=== PATIENT | male | born 1935 | race Caucasian/White ===

== ENCOUNTER 2017-05-22 02:20 | Inpatient (IN) | payer OTHER, MEDICARE ==
[~2017-05-22] VITALS: Ht 170.2 cm; Wt 81.6 kg
[~2017-05-22 02:20] MED LIST: ASPIRIN EC81 M1 PO; LIPITOR20 M2 PO; OMEGA 3-6-9 11200 MG; VITAMIN B-650 M2 PO; VITAMIN B122500 MC1; VITAMIN D31000 UNI1 PO
--- NOTE | 2017-05-22 07:26 | Operative Report ---
Operative/Inv Procedure Report Surgery Date: 05/22/17 Name of Procedure: Left total knee arthroplasty Pre-Operative Diagnosis: Left knee degenerative joint disease Post-Operative Diagnosis: Left knee degenerative joint disease Estimated Blood Loss: 50ml to 100ml Surgeon/Material Control Analyst: Bharati QUIROS,Robb Mendoza APRN Anesthesia: block, spinal Implants: [employer] size 5 left cruciate retaining legion nonporous femoral component. Nadia II left nonporous tibial baseplate size 5. Nadia II biconvex patellar component size 23 mm. Size 56 9 mm Legion cruciate retaining XLPE high flexion articular insert. Drains: Hemovac Complications: None Condition: Stable to PACU Operative Indication: This is an 82-year-old male with long-standing left knee pain that has failed conservative care. Risks and benefits of the procedure were discussed with the patient at length. Risks include but are not limited to nerve damage, muscle damage, infection, blood loss, blood clots, pulmonary embolus, and even . The patient agreed to the above risks and elected to proceed with surgery. Operative/Procedure Note Note: The patient was taken to the operating room. Anesthesia was induced after the timeout was performed. The lower extremity was prepped and draped in the normal sterile fashion. IV antibiotics were given prior to incision. The site marking was visualized prior to incision. After the leg was prepped and draped, an esmarch was used to exsanguinate the extremity. The tourniquet was inflated. A midline incision was made proximal to the patella extending down to the tibial tubercle. A medial parapatellar approach was then made. The skin was retracted and the extensor mechanism was incised. The knee was taken down into full extension. The patellar fat pad was resected. The medial retinaculum was then taken down. The synovium over the distal femur was then resected. The patella was everted and the knee was flexed up. The lateral meniscus was then excised. The ACL was removed. A drill was then used to open up the distal femur. The intramedullary guide was then applied. A 6 distal femoral cut was then made. The femur was then sized. The chamfer guide was then applied. The anterior, posterior, and chamfer cuts were then made while protecting the patellar tendon with a Hohmann retractor and the medial collateral ligament with a Z retractor. A pickle fork was then used to deliver the tibia. The extramedullary tibial guide was then applied. The proximal tibial cut was made. The medial and lateral meniscus were then excised. The osteophytes were removed with a Rongeur. The tibia was sized and the trial base plate was then pinned in place. A trial femoral component was placed and a trial polyethylene insert was then applied as well. The knee was taken through a range of motion and was noted to be quite stable. The patella was then everted, sized, and then reamed. A trial patellar component was placed and the knee was taken through range of motion. The patella was noted to be quite stable. All trial instruments were then removed. The knee was copiously irrigated. Retractors were placed in the final components were then cemented in. A trial polyethylene insert was then placed. After the cement hardened, the excess cement was removed. The trial poly-insert was then removed. The knee was copiously irrigated. The final poly insert was inserted. The tourniquet was let down. Any bleeding vessels were identified and cauterized. A 1/8 inch Hemovac drain was then placed. The extensor mechanism was closed with #1 Vicryl suture in a simple interrupted fashion. The skin was closed with 2-0 Vicryl suture. A running subcuticular 4-0 Monocryl stitch was then placed. Dermabond was applied. A dry sterile dressing was placed and patient was transferred to PACU in stable condition.
--- NOTE | 2017-05-22 10:08 | Admission Core Measures ---
Acute Coronary Syndrome (CM) ACS Core Measures Acute Coronary Syndrome Diagnosis No Congestive Heart Failure (NEW) CHF Core Measures Congestive Heart Failure Diagnosis No Cerebrovascular Accident (NEW) CVA Core Measures CVA/TIA Diagnosis No Venous Thromboembolism VTE Core [place] (View Protocol) VTE Risk Factors Surgery No Mechanical VTE Prophylaxis d/t N/A MechProphylax Ordered No VTE Pharm Prophylaxis d/t NA PharmProphylax ordered Problem List As ranked by this Provider includes Assessment & Plan 1. Unilateral primary osteoarthritis, left knee HOME MEDS Home Med List Aspirin (Ecotrin*) 81 MG TABLET.DR 1 TAB PO DAILY CARDIAC (Reported) Atorvastatin Calcium (Lipitor) 20 MG TABLET 1 TAB PO DAILY CHOLESTEROL ( Reported) Cholecalciferol (Vitamin D3) (Vitamin D3) 1,000 UNIT CAPSULE 1 CAP PO TID SUPPLEMENT (Reported) Pyridoxine HCl (Vitamin B-6) 50 MG TABLET 1 TAB PO DAILY SUPPLEMENT (Reported )
--- NOTE | 2017-05-22 10:15 | Patient Discharge Instructions ---
Discharge Instructions General Discharge Information You were seen/treated for: Left knee pain related to unilateral primary osteoarthritis You had these procedures: Left total knee replacement Watch for these problems: Increasing pain despite the use of pain medication Increasing redness, warmth, swelling Drainage of any type from incision Inability to bear weight on operative leg Fever greater than 101.5 Do not soak the wound: Yes No bath, but you may shower: Yes Other wound care: Keep wound clean and dry No ointmets or lotions of any type on or near incision, no exceptions Do not soak wound for a minimum of 6 weeks unless otherwise indicated by Dr. Calabrese Special Instructions: Pain medication can be constipating. Be sure to take a laxative such as miralax or a stool softener such as colace, or both. These are available over the counter. Diet Continue normal diet: Yes Recommended Diet: Regular Activity Full Activity/No Limits: No Activity Self Limited: Yes Pounds, do NOT lift more than: 10 Activity Limited to: Weight bear as tolerated Acute Coronary Syndrome Inclusion Criteria At DC or during hospital stay patient has or had the following: ACS DIAGNOSIS No Discharge Core Measures Meds if any: Prescribed or Continued at Discharge Meds if any: NOT Prescribed or Continued at Discharge Congestive Heart Failure Inclusion Criteria At DC or during hospital stay patient has or had the following: CHF DIAGNOSIS No Discharge Core Measures Meds if any: Prescribed or Continued at Discharge Meds if any: NOT Prescribed or Continued at Discharge Cerebrovascular accident Inclusion Criteria At DC or during hospital stay patient has or had the following: CVA/TIA Diagnosis No Discharge Core Measures Meds if any: Prescribed or Continued at Discharge Meds if any: NOT Prescribed or Continued at Discharge Venous thromboembolism Inclusion Criteria VTE Diagnosis No VTE Type NONE VTE Confirmed by (Test) NONE Discharge Core Measures - Per Current guidelines, there needs to be overlap - treatment for the first 5 days of Warfarin therapy. - If discharged on Warfarin prior to 5 days of - overlap therapy, the patient will need to be - assessed for post discharge needs including - *Post discharge parental anticoagulation - *Warfarin and/or parental anticoagulation education - *Follow up date to check INR post discharge At least 5 days overlap therapy as Inpatient No Meds if any: Prescribed or Continued at Discharge Note: Overlap Therapy is Warfarin and Anticoagulant Meds if any: NOT Prescribed or Continued at Discharge
--- NOTE | 2017-05-22 10:19 | Surgical Discharge Summary ---
Visit Information Visit Dates Admission Date: 05/22/17 Discharge Date: 05/24/17 History of Present Illness Chief Complaint: Left knee pain related to unilateral primary osteoarthritis Surgical History Pertinent Surgical History: knee replacement Review of Systems: See H&P Hospital Course Course Attending Physician: Robb Calabrese MD Primary Care Physician: Tomi Rangel MD Hospital Course: Patient was admitted to the hospital on 05/22/2017 for an elective left total knee replacement. He tolerated the procedure well and was transferred to a general surgical floor. His diet was advanced and tolerated. He voided spontaneously. He was evaluated and treated by physical therapy. At the time of hospital discharge, his vital signs were stable and within normal limits, his neurovascular status was intact, and his pain was controlled with po pain medications. He was deemed appropriate for discharge. Allergies: Coded Allergies: No Known Allergies (05/20/17) Disposition Summary Disposition Principal Diagnosis: Left knee unilateral primary osteoarthritis Additional Diagnosis: None Discharge Disposition: home health services Discharge Instructions General Discharge Information Code Status: Full Code Patient's Diet: Regular, advance as tolerated Patient's Activity: WBAT Follow-Up Instructions/Appts: Follow up with Dr. Calabrese in 2 weeks from date of surgery Medications at Discharge Discharge Medications: Continue taking these medications: Aspirin (Ecotrin*) 81 MG TABLET. 1 Tablet ORAL DAILY Cyanocobalamin (Vitamin B-12) (Vitamin B12) 2,500 MCG TABLET Pyridoxine HCl (Vitamin B-6) 50 MG TABLET 1 Tablet ORAL DAILY Cholecalciferol (Vitamin D3) (Vitamin D3) 1,000 UNIT CAPSULE 1 Capsule ORAL THREE TIMES DAILY Fish Oil/Borage/Flax/Om3,6,9#1 ([place] 3-6-9 1,200 MG Softgel) 1,200 MG CAPSULE Atorvastatin Calcium (Lipitor) 20 MG TABLET 1 Tablet ORAL DAILY Start taking the following new medications: Enoxaparin Sodium (Lovenox) 40 MG/0.4 ML SYRINGE 40 Milligram Inject into fatty tissue DAILY Qty = 30 No Refills Oxycodone HCl (Oxycodone HCl) 5 MG TABLET 1-2 Tablet ORAL EVERY 4-6 HOURS NEEDED as needed for POSTOP PAIN Qty = 36 No Refills Docusate Sodium (Colace) 100 MG CAPSULE 1 Capsule ORAL TWICE DAILY Qty = 14 No Refills Instructions: STOP TAKING IF YOU DEVELOP LOOSE STOOL/DIARRHEA
--- NOTE | 2017-05-22 13:22 | PN- Orthopedic ---
Subjective Subjective: Post op check Awake, alert No complaints at this time Pain is well controlled Denies nausea, tolerating regular food Has not ambulated with PT yet Objective Vital Signs and I&Os 110/60 HR 64 RR18 sat 95% on 3LNC T 97.9 Urine output 395cc clear, yellow urine in 3 hours LANNY 55cc bloody drainage total since OR Physical Exam: General: alert and oriented times three Chest: clear anteriorly bilaterally, RRR Abd: soft, good bs Ext: warm, no edema, normosensate, good 5/5 JUAN JOSÉ BLE, no calf tenderness On Q in place LANNY in place -drainage as above Wd: dressed, dry, ice pack in place Assessment/Plan Assessment/Plan 82yo male s/p L TKR pain management On Q per anesthesia Monitor LANNY output dc gloria in am PT - WBAT TRC lovenox for dvt ppx Core Measures Venous Thromboembolism VTE Risk Factors Surgery No Mechanical VTE Prophylaxis d/t N/A MechProphylax Ordered No VTE Pharm Prophylaxis d/t NA PharmProphylax ordered
[2017-05-22 16:00] VITALS: BP 124/70
[2017-05-22 18:00] VITALS: BP 110/64
[2017-05-22 21:22] VITALS: BP 1216/70
[2017-05-22 22:00] VITALS: BP 108/68
[2017-05-23 07:11] VITALS: BP 109/72
--- NOTE | 2017-05-23 08:09 | PN- Orthopedic ---
See Addendum Subjective Subjective: POD #1 s/p left TKR. Resting comfortably in bed. No complaints of pain. No N/V , F/C, CP/SOB. Yet to ambulate. Voiding via gloria catheter. Objective Vital Signs and I&Os Vital Signs Date Time Temp Pulse Resp B/P B/P Pulse O2 O2 Flow FiO2 Mean Ox Delivery Rate 05/23 0711 97.9 64 18 109/72 92 Room Air 05/22 2200 97.5 64 18 108/68 94 Room Air 05/22 2122 97.6 68 20 1216/70 93 Room Air 05/22 1800 98.6 75 19 110/64 93 Room Air 05/22 1600 97.4 70 18 124/70 95 Room Air Intake & Output 05/23 1600 05/23 0800 05/23 0000 05/22 1600 05/22 0800 05/22 0000 Intake Total 600 420 Output Total 760 1130 Balance -160 -710 Intake, IV 600 300 Intake, Oral 120 Output, 60 130 Drainage Output, Urine 700 1000 Patient 180 lb 180 lb Weight Physical Exam: Gen: AAOx3 in NAD Cor: S1+S2+ Lungs: CTA yisel Abd: soft, NT, ND, +BS x4 Ext: no edema or calf tenderness to yisel lower extremities. Able to dorsiflex and plantar flex. Palpable DP/PT to left leg. Sensation grossly intact. Onq pump in place. LANNY holding suction. Current Medications: Current Medications Sig/Parminder Start time Last Medication Dose Route Stop Time Status Admin Acetaminophen 1,000 MG Q6H 05/22 1600 AC 05/23 IV 05/23 1001 0429 Aspirin Buffered 81 MG DAILY 05/23 1000 AC PO Atorvastatin Calcium 20 MG DAILY@1700 05/23 1700 AC PO Atorvastatin Calcium 20 MG DAILY 05/22 1000 DC PO Cefazolin Sodium 2 GM IQ8 05/22 1600 DC 05/23 N/A 1 UNIT IV 05/23 0029 0012 Cefazolin Sodium 2,000 MG ONCE 05/22 0000 DC IV 05/22 2359 Dextrose/Sodium 1,000 ML .[id number] 05/22 1600 DC 05/22 Chloride IV 1658 Diphenhydramine HCl 50 MG .STK-MED ONE 05/22 1000 DC IM 05/22 1001 Docusate Sodium 100 MG BID 05/22 2200 AC PO Enoxaparin Sodium 40 MG DAILY 05/23 1000 AC SC Ketorolac 15 MG Q8H 05/22 1800 AC 05/23 Tromethamine IV 05/24 1001 0231 Morphine Sulfate 2 MG Q2P PRN 05/22 1600 AC IV Ondansetron HCl 4 MG Q6P PRN 05/22 1600 AC IV Oxycodone HCl 5 MG Q4P PRN 05/22 1600 AC 05/23 PO 0015 Oxycodone HCl 10 MG Q4P PRN 05/22 1600 AC PO Polyethylene Glycol 17 GM DAILY 05/23 1000 AC PO Promethazine HCl 12.5 MG Q6P PRN 05/22 1600 AC IV 05/29 0959 Ropivacaine 500 ML ONCE ONE 05/22 1015 AC ON-Q Ball 1 BAG INJ 05/24 1214 Results Last 48 Hours of Labs: Laboratory Tests 05/23 0736 Chemistry Sodium Pending Potassium Pending Chloride Pending Carbon Dioxide Pending Anion Gap Pending BUN Pending Creatinine Pending BUN/Creatinine Ratio Pending Hematology CBC w Diff Pending WBC Pending RBC Pending Hgb Pending Hct Pending MCV Pending MCH Pending RDW Pending Plt Count Pending MPV Pending PUBS MCHC Pending Assessment/Plan Assessment/Plan A; POD #1 s/p left TKR; AVSS Plan: F/U labs. PT eval today. Lovenox x 5 weeks. Continue pain control. Continue bowel regimen. Core Measures Venous Thromboembolism VTE Risk Factors Surgery No Mechanical VTE Prophylaxis d/t N/A MechProphylax Ordered No VTE Pharm Prophylaxis d/t NA PharmProphylax ordered
[2017-05-23 08:17] LABS: ABSOLUTE BASOPHIL COUNT 0 /CUMM (0.0-0.2); ABSOLUTE EOSINOPHIL COUNT 0 /CUMM (0.0-0.7); ABSOLUTE GRANULOCYTE CT 10.8 /CUMM (1.4-6.5); ABSOLUTE LYMPH COUNT 1.3 /CUMM (1.2-3.4); BASOPHIL % 0.3 % (0.0-2.0); EOSINOPHIL % 0.1 % (0-5); HEMATOCRIT 37.2 % (42-52); MEAN CORPUSCULAR HGB 30.6 PG (27.0-31.0); MEAN CORPUSCULAR HGB CONC 33.7 G/DL (33.0-37.0); MEAN PLATELET VOLUME 7.7 FL (7.4-10.4); PLATELET COUNT 155 /CUMM (130-400); RBC DISTRIBUTION WIDTH 13.5 % (11.5-14.5); RED BLOOD CELL CT 4.09 /CUMM (4.70-6.10); WHITE BLOOD CELL COUNT 13.2 /CUMM (4.8-10.8)
[2017-05-23 13:41] VITALS: BP 110/54
[2017-05-23 21:40] VITALS: BP 104/58
[2017-05-24 07:04] VITALS: BP 110/62
[2017-05-24] MEDS ORDERED: OXYCODONE HCL5 M1 PO (13:02)
[2017-05-24] MEDS ORDERED: LOVENOX40 MG/0.1 SC (13:02)
[2017-05-24] MEDS ORDERED: COLACE100 M1 PO (13:02)
[2017-05-24 13:22] VITALS: BP 120/64
== END 2017-05-24 14:25 | disposition home health service (06) | DRG 470 ==
LOC: SDA 02:20 → 2NB 02:20 → ENRESERV 14:01 → ENTRNSPT 15:11 → EDTRNSPTSTS 15:14 → 2NB 15:35 → CMPTRNSPT 15:51 → ENPENDDIS 05-24 13:11 → ENTRNSPT 05-24 14:17 → CMPTRNSPT 05-24 14:24 → 2NB 05-24 14:25
PROVIDERS: Nurse Practitioner
PROC: 0SRD069 Replacement of Left Knee Joint with Oxidized Zirconium on Polyethylene Synthetic Substitute, Cemented, Open Approach (ICD-10-PCS; principal; 2017-05-22)
PROC: 3E0T3BZ Introduction of Anesthetic Agent into Peripheral Nerves and Plexi, Percutaneous Approach (ICD-10-PCS; 2017-05-22)
DX: M17.12 Unilateral primary osteoarthritis, left knee (principal); J44.9 Chronic obstructive pulmonary disease, unspecified; Z85.118 Personal history of other malignant neoplasm of bronchus and lung; Z85.46 Personal history of malignant neoplasm of prostate; Z86.718 Personal history of other venous thrombosis and embolism; I71.4 Abdominal aortic aneurysm, without rupture; H35.30 Unspecified macular degeneration; Z87.891 Personal history of nicotine dependence
CPT/HCPCS: 2NBP; 36415; 82436; 87086; 97110-GO; 97116-GO; 97161-GP; 97530-GO; C1713; J0131; J0690; J1200; J1650; J2550; J2795; J7042

== ENCOUNTER 2017-05-25 11:50 | Emergency (ER) | payer OTHER, MEDICARE ==
[~2017-05-25] VITALS: Ht 170.2 cm; Wt 81.6 kg
[~2017-05-25 11:50] MED LIST changes: +COLACE100 M1 PO; +LOVENOX40 MG/0.1 SC; +OXYCODONE HCL5 M1 PO
--- NOTE | 2017-05-25 12:36 | ED UPPER/LOWER EXTREMITY COMPL ---
History of Present Illness General Chief Complaint: General Adult Stated Complaint: BLEEDING AT SURGICAL SITE (LT KNEE) Source: patient, family, old records Exam Limitations: no limitations Vital Signs & Intake/Output Vital Signs & Intake/Output Vital Signs Date Time Temp Pulse Resp B/P B/P Pulse O2 O2 Flow FiO2 Mean Ox Delivery Rate 05/25 1340 98.8 75 16 149/81 94 Room Air 05/25 1200 97.5 78 18 169/92 95 Room Air Allergies Coded Allergies: No Known Allergies (05/20/17) Reconcile Medications Aspirin (Ecotrin*) 81 MG TABLET.DR 1 TAB PO DAILY CARDIAC (Reported) Atorvastatin Calcium (Lipitor) 20 MG TABLET 1 TAB PO DAILY CHOLESTEROL ( Reported) Cholecalciferol (Vitamin D3) (Vitamin D3) 1,000 UNIT CAPSULE 1 CAP PO TID SUPPLEMENT (Reported) Cyanocobalamin (Vitamin B-12) (Vitamin B12) 2,500 MCG TABLET SUPPLEMENT ( Reported) Docusate Sodium (Colace) 100 MG CAPSULE 1 CAP PO BID STOOL SOFTENER STOP TAKING IF YOU DEVELOP LOOSE STOOL/DIARRHEA Enoxaparin Sodium (Lovenox) 40 MG/0.4 ML SYRINGE 40 MG SC DAILY anticoagulant Fish Oil/Borage/Flax/Om3,6,9#1 ([place] 3-6-9 1,200 MG Softgel) 1,200 MG CAPSULE SUPPLEMENT (Reported) Oxycodone HCl 5 MG TABLET 1-2 TAB PO Q4-6 PRN PRN POSTOP PAIN Pyridoxine HCl (Vitamin B-6) 50 MG TABLET 1 TAB PO DAILY SUPPLEMENT (Reported ) Triage Note: PT SENT TO ER BY DR CALABRESE DUE TO DRAINAGE FROM SURGICAL SITE. PT HAD L TOTAL KNEE DONE ON 05/22/17 AND YESTERDAY STARTED WITH BLOODY DRAINAGE FROM SITE. Triage Nurses Notes Reviewed? yes Onset: Gradual Duration: hour(s): Timing: recent history Severity: moderate Pain/Injury Location: Left: Knee. HPI: 82-year-old male presents emergency department complaining of bleeding from surgical site. Patient had left total knee replacement on 05/22/[address] Calabrese. He was discharged home yesterday. Patient reports that while he was in the hospital he did not have significant bleeding however last night when he got home he was bleeding through dressing around knee. He redressed the knee and this morning a visiting nurse saw that bleeding was still significant and sent him here to the emergency department. Patient is on daily Lovenox injections since surgery. Patient reports a fever of 100.9F yesterday, he called Dr. Calabrese who informed him that this could be normal postoperatively. This morning the patient did not have a fever when visiting nurse arrived. The patient is not complaining of significant pain to left knee. He denies trauma or fall. The patient does not that he has been walking a lot since he has gone home. (Christine Red) Past History Travel History Traveled to [place] past 21 day No Medical History Any Pertinent Medical History? see below for history Neurological: NONE Cardiovascular: aortic aneurysm, hyperlipidemia Respiratory: COPD Gastrointestinal: NONE Hepatic: NONE Renal: NONE Musculoskeletal: osteoarthritis Psychiatric: NONE Endocrine: NONE Blood Disorders: DVT Cancer(s): lung cancer, prostate cancer History of MRSA: No History of VRE: No History of CDIFF: No Influenza Vaccine: 02/11/17 Surgical History Surgical History: appendectomy, R TKA LEFT LUNG REMOVAL RCW IMPLANTED PORT Psychosocial History Who do you live with Spouse What is your primary language Slovak Tobacco Use: Never used ETOH Use: denies use Illicit Drug Use: denies illicit drug use Family History Hx Contributory? No (Christine Red) Review of Systems Review of Systems Constitutional: Reports: see HPI. EENTM: Reports: no symptoms. Respiratory: Reports: no symptoms. Cardiovascular: Reports: no symptoms. Gastrointestinal/Abdominal: Reports: no symptoms. Genitourinary: Reports: no symptoms. Musculoskeletal: Reports: see HPI. Skin: Reports: see HPI. Neurological/Psychological: Reports: no symptoms. Hematologic/Endocrine: Reports: see HPI. Immunological: Reports: no symptoms. All Other Systems: Reviewed and Negative (Christine Red) Physical Exam Physical Exam General Appearance: well developed/nourished, no apparent distress, alert, awake Head: atraumatic, normal appearance Eyes: Bilateral: normal appearance. Ears, Nose, Throat: hearing grossly normal Neck: normal inspection, supple, full range of motion Peripheral Pulses: 2+ dorsalis pedis (L) Back: normal inspection, normal range of motion Leg Right: normal range of motion, normal inspection Hip Left: normal range of motion, normal inspection Hip Right: normal range of motion, normal inspection Knee Left: healing surgical incision to anterior knee, mild sanguinous oozing from distal aspect of surgical incision No significant erythema, warmth or tenderness mild surrounding swelling Knee Right: normal range of motion, normal inspection Foot Left: normal inspection, normal range of motion Foot Right: normal inspection, normal range of motion Neurologic/Tendon: normal sensation, no pulse deficit Skin: see L knee surgical site above (Tisha CORCORAN,Christine Samaniego) Progress Differential Diagnosis: cellulitis, compartment syndrome, contusion, DVT, tendon injury, post operative bleeding Plan of Care: Orders Procedure Date/time Status PARTIAL THROMBOPLASTIN TIME 05/25 1229 Complete PROTHROMBIN TIME 05/25 122 Complete COMPREHENSIVE METABOLIC PANEL 05/25 1228 Complete CBC WITHOUT DIFFERENTIAL 05/25 1228 Complete Laboratory Tests 05/25/17 1247: Anion Gap 11, Estimated GFR > 60, BUN/Creatinine Ratio 22.5, Glucose 93, Calcium 8.7, Total Bilirubin 0.5, AST 31, ALT 29, Alkaline Phosphatase 53, Total Protein 6.0 L, Albumin 3.3 L, Globulin 2.7, Albumin/Globulin Ratio 1.2, PT 11.4, INR 1.09, APTT 29, CBC w Diff NO MAN DIFF REQ, RBC 4.37 L, MCV 90.8, MCH 30.1, RDW 13.6, MPV 7.2 L, Gran % 63.7, Lymphocytes % 19.8 L, Monocytes % 12.1 H, Eosinophils % 4.1, Basophils % 0.3, Absolute Granulocytes 6.1, Absolute Lymphocytes 1.9, Absolute Monocytes 1.2 H, Absolute Eosinophils 0.4, Absolute Basophils 0, PUBS MCHC 33.2 Patient's blood work is within normal limits, no acute abnormality. Spoke with Dr. Calabrese regarding this patient. He states that he closes surgical incisions with Dermabond and at times small section can open up and causing bruising. Dr. Calabrese reviewed the patient's labs and feels it is safe for the patient to go home, recommends continuing Lovenox and applying direct pressure for choosing. Dr. Calabrese believes patient can continue with physical therapy as scheduled for tonight. Findings were discussed with the patient who agrees with the plan of care. Patient able to ambulate without difficulty. Patient will follow-up with Dr. Calabrese as an outpatient or return to the emergency department with worsening symptoms or other concerns. The patient was discussed with Dr. Kam who agrees with this plan. (Christine Red) Departure Departure Disposition: HOME OR SELF CARE Condition: Stable Clinical Impression Primary Impression: Post-op bleeding Qualifiers: Surgical complication system/body Area: subcutaneous tissue Procedure type: non-dermatologic Qualified Code: L76.22 - Postprocedural hemorrhage of skin and subcutaneous tissue following other procedure Secondary Impressions: Postoperative visit Referrals: Claire QUIROS,Tomi Silvestre (PCP/Family) Additional Instructions: Continue Lovenox as prescribed. When you detected oozing or bleeding apply direct pressure and keep dressing on. You may continue with physical therapy. Follow-up with Dr. Calabrese as scheduled. Please note that there might be incidental findings in your evaluation that are unrelated to the current emergency department visit. Please notify your primary care doctor about this emergency department visit in order to obtain and review all of the testing performed so that these incidental findings can be monitored as needed. If you had an x-ray performed, please understand that some fractures may not be seen on the initial set of x-rays. If your symptoms persist you might need a repeat set of x-rays to check for such a fracture. If you had a laceration evaluated, please understand that foreign bodies such as glass or wood may not be visible to the naked eye or on plain x-rays. If the wound becomes red, swollen, increasingly more painful or if there is any drainage from the wound, please have it reevaluated by a physician for the possibility of a retained foreign body. If you're unable to follow up as outlined in the discharge instructions please return to the emergency department. Thank you for choosing the Emergency Department for your care. It was a pleasure to serve you today. Departure Forms: Customer Survey General Discharge Information (Christine Red) PA/ADULT CARE MANAGER Co-Sign Statement Statement: ED Attending supervision documentation- [X] I saw and evaluated the patient. I have also reviewed all the pertinent lab results and diagnostic results. I agree with the findings and the plan of care as documented in the PA's/ADULT CARE MANAGER's documentation. [X] I have reviewed the ED Record and agree with the PA's/ADULT CARE MANAGER's documentation. [] Additions or exceptions (if any) to the PAs/ADULT CARE MANAGER's note and plan are summarized below: [] (Eddy QUIROS,Yuri Landis)
[2017-05-25 12:53] LABS: ABSOLUTE BASOPHIL COUNT 0 /CUMM (0.0-0.2); ABSOLUTE EOSINOPHIL COUNT 0.4 /CUMM (0.0-0.7); ABSOLUTE GRANULOCYTE CT 6.1 /CUMM (1.4-6.5); ABSOLUTE LYMPH COUNT 1.9 /CUMM (1.2-3.4); ABSOLUTE MONOCYTE COUNT 1.2 /CUMM (0.10-0.60); BASOPHIL % 0.3 % (0.0-2.0); EOSINOPHIL % 4.1 % (0-5); GRANULOCYTE % 63.7 % (42.2-75.2); HEMATOCRIT 39.7 % (42-52); MEAN CORPUSCULAR HGB 30.1 PG (27.0-31.0); MEAN CORPUSCULAR HGB CONC 33.2 G/DL (33.0-37.0); MEAN CORPUSCULAR VOLUME 90.8 FL (80.0-94.0); MEAN PLATELET VOLUME 7.2 FL (7.4-10.4); PLATELET COUNT 196 /CUMM (130-400); RBC DISTRIBUTION WIDTH 13.6 % (11.5-14.5); RED BLOOD CELL CT 4.37 /CUMM (4.70-6.10); WHITE BLOOD CELL COUNT 9.6 /CUMM (4.8-10.8)
[2017-05-25 13:09] LABS: PT 11.4 SEC (9.4-12.5); PTT 29 SEC (25-37)
[2017-05-25 13:40] VITALS: BP 149/81
== END 2017-05-25 13:45 ==
LOC: ERH 11:50
PROVIDERS: Physician Assistant
DX: M96.830 Postprocedural hemorrhage of a musculoskeletal structure following a musculoskeletal system procedure (principal)